=== PATIENT | female | born 1995 | race Caucasian/White ===

== ENCOUNTER → 2023-05-14 09:53 | Outpatient (CLI) | payer OTHER, SELFPAY ==
--- NOTE | 2023-05-14 09:58 | DI.RAD.S_ITS ---
PROCEDURE: XR THORACIC SPINE 3V INDICATIONS: THORACIC BACK PAIN TECHNIQUE: 3 views of the thoracic spine were acquired. COMPARISON: None. FINDINGS: Bones: No fractures or dislocations. No suspicious bony lesions. 12 pairs of ribs are noted, and appear intact where visualized. Soft tissues: No paravertebral stripe thickening. IMPRESSION: No visualized acute fracture or dislocation. However, if clinical concern and/or pain persist, short interval imaging followup in 7-10 days is recommended, as occult injury cannot be definitively excluded. Dictated by: Jannette Metcalf M.D. on 05/14/2023 at 15:27 Approved by: Jannette Metcalf M.D. on 05/14/2023 at 15:31
== END ==
PROVIDERS: PCP Ophthalmology; Referring Provider Anesthesiology; Visit Provider Anesthesiology
DX: M54.6 Pain in thoracic spine (principal); M79.7 Fibromyalgia; G89.29 Other chronic pain
CPT/HCPCS: 20553; 72072; 76942; 99213

== ENCOUNTER → 2023-10-29 15:47 | Outpatient (CLI) | payer OTHER, SELFPAY ==
--- NOTE | 2023-10-29 15:49 | DI.MRI.S_ITS ---
PROCEDURE: MR LUMBAR SPINE WO CON INDICATIONS: Low back pain, right lower extremity pain TECHNIQUE: Noncontrast sagittal T1 spin echo and T2 fast echo, sagittal STIR, axial T1 and T2 fast spin echo through the lumbar spine. Axial and oblique coronal T1 spin echo and STIR through the sacrum. In cases with scoliosis, additional coronal T2 fast spin echo may be performed. COMPARISON: [facility], CR, XR THORACIC SPINE 3V, 05/14/2023, 10:02. [facility], CR, XR LUMBAR SPINE MIN 4V, 10/29/2023, 16:05. FINDINGS: Image quality: Excellent. Alignment and Curvature: Gentle levocurvature centered at L2-L3, as part of the S shaped scoliotic thoracolumbar curvature. Normal alignment in AP plane. Bone Marrow: Marrow is of normal overall signal. No acute vertebral body compression fractures. Spinal Cord: Conus medullaris terminates at the L2 level. Visualized cord demonstrates normal signal and size. Paraspinous Soft Tissues: No paravertebral masses. T12-L1: Normal appearance. L1-L2: Normal appearance. L2-L3: Normal appearance. L3-L4: Normal appearance. L4-L5: Early facet hypertrophy. No canal stenosis or foraminal stenosis. L5-S1: Early facet hypertrophy. Minimal disc bulge. No canal stenosis or foraminal stenosis. IMPRESSION: 1. S shaped thoracolumbar curvature. 2. Early lower lumbar facet arthropathy. 3. No canall stenosis or foraminal stenosis. Dictated by: Ruslan Ordonez M.D. on 10/30/2023 at 7:40 Approved by: Ruslan Ordonez M.D. on 10/30/2023 at 7:43
--- NOTE | 2023-10-29 15:49 | DI.MRI.S_ITS ---
PROCEDURE: MR THORACIC SPINE WO CON INDICATIONS: Thoracic back pain, radiation anteriorly to the right chest TECHNIQUE: Noncontrast sagittal T1 spin echo and T2 fast spin echo, sagittal STIR through the thoracic and lumbar spines, with additional T2 fast spin echo images acquired through levels of compression fractures. COMPARISON: [facility], MR, MR LUMBAR SPINE WO CON, 10/29/2023, 16:22. [facility], CR, XR THORACIC SPINE 3V, 05/14/2023, 10:02. [facility], CR, XR LUMBAR SPINE MIN 4V, 10/29/2023, 16:05. FINDINGS: Image quality: Excellent. Bones: Mild S-shaped thoracolumbar scoliotic curvature. Normal alignment in AP plane. No suspicious bone marrow signal abnormality. T11 Schmorl's node. L1 hemangioma. Spinal cord: Visualized spinal cord is normal in size and signal. Conus medullaris is normal in location. Paraspinous soft tissues: No paravertebral masses. There is no canal stenosis or foraminal stenosis in the thoracic spine. IMPRESSION: Mild S-shaped thoracolumbar scoliotic curvature. Negative thoracic spine MR for canal stenosis or foraminal stenosis. Dictated by: Ruslan Ordonez M.D. on 10/30/2023 at 7:35 Approved by: Ruslan Ordonez M.D. on 10/30/2023 at 7:39
--- NOTE | 2023-10-29 17:04 | DI.RAD.S_ITS ---
PROCEDURE: XR LUMBAR SPINE 2-3V INDICATIONS: Low back pain, right lower extremity pain TECHNIQUE: 3 views of the lumbar spine were acquired. COMPARISON: [facility], MR, MR LUMBAR SPINE WO CON, 10/29/2023, 16:22. [facility], MR, MR THORACIC SPINE WO CON, 10/29/2023, 16:22. FINDINGS: Bones: 5 [id number] vertebrae are present. Levoconvex curvature of the lumbar spine with apex at L2-L3 and Tom angle of approximately 15.5 degrees from the superior endplate of L1 to the inferior endplate of L4. No vertebral body compression fractures. Vertebral body height and disc spaces are relatively maintained. No suspicious bony lesions. Soft tissues: Overlying bowel gas pattern is normal. No suspicious soft tissue calcifications. IMPRESSION: 1. No acute bony abnormality. Please see recent MRI of the spine dated October 30, 2023 for additional findings. 2. Levoconvex curvature of the lumbar spine with apex at L2-L3. Dictated by: Inés Salvador M.D. on 11/11/2023 at 11:00 Approved by: Inés Salvador M.D. on 11/11/2023 at 11:03
== END ==
PROVIDERS: Referring Provider Anesthesiology; Visit Provider Anesthesiology
DX: M47.26 Other spondylosis with radiculopathy, lumbar region (principal); M54.14 Radiculopathy, thoracic region; M54.50 Low back pain, unspecified; M54.6 Pain in thoracic spine; G89.29 Other chronic pain; M41.9 Scoliosis, unspecified
CPT/HCPCS: 72100; 72110; 72146; 72148